=== PATIENT | female | born 1955 | race Caucasian/White ===

== ENCOUNTER → 2017-04-04 | Outpatient (CLI) | payer BC ==
[2017-04-04 09:37] LABS: ALT 35 U/L (9-52); AST 32 U/L (14-36); Cholesterol 157 mg/dL (<200); Creatine Kinase 100 U/L (30-135); HDL Cholesterol 85 mg/dL (40-60)
== END | disposition home or self-care (01) ==
LOC: LABWHC1 07:55
PROVIDERS: ATTEND Internal Medicine Interventional Cardiology
DX: E78.2 Mixed hyperlipidemia (principal)
CPT/HCPCS: 36415; 80061; 82550; 84450; 84460

== ENCOUNTER → 2020-03-24 | Outpatient (CLI) | payer MEDICARE ==
[2020-03-24 16:28] LABS: Albumin 4.3 g/dL (3.80-4.90); Albumin/Globulin Ratio 2.26 (1.60-3.17); Anion Gap 7.2 mmol/L (4.00-12.00); BUN/Creat Ratio 23.75 Ratio (12.00-20.00); Calcium 9.4 mg/dL (8.7-10.3); Carbon Dioxide 27.8 mmol/L (21.6-31.8); Chol/HDL Ratio 2.4; Globulin 1.9 g/dL (1.6-3.3); LDL Cholesterol,Calculated 78.4 mg/dL (0.0-131.0); Non-African American GFR(CKD) 76.8 (60.0-200.0); Potassium 4.3 mmol/L (3.5-5.5); Total Bilirubin 0.6 mg/dL (0.2-1.2); Total Protein 6.2 g/dL (6.2-8.2); VLDL Calculation 19.6 mg/dL (5.00-40.00)
== END | disposition home or self-care (01) ==
LOC: LABWHC1 08:42
PROVIDERS: ATTEND Internal Medicine Interventional Cardiology
DX: E78.2 Mixed hyperlipidemia (principal)
CPT/HCPCS: 36415; 80053; 80061

== ENCOUNTER → 2021-08-11 | Outpatient (CLI) | payer MEDICARE ==
--- NOTE | 2021-08-11 11:30 | MR ---
EXAMINATION TYPE: MR shoulder RT wo con DATE OF EXAM: 08/11/2021 COMPARISON: Plain film 07/26/2021 HISTORY: Rt shoulder pain and tingling increasing over past years TECHNIQUE: Multiplanar, multisequence imaging of the right shoulder is performed without contrast. FINDINGS: Rotator Cuff: Partial full-thickness rotator cuff tear is present, supraspinatus tendon is detached a t its insertion, there is some retraction to the level of the acromioclavicular joint on the portion of the tendon, infraspinatus tendon is attenuated. Subscapularis tendon also shows some increased sig nal within the substance., supraspinatus tendon is markedly attenuated. Fluid signal is present along the subscapularis tendon, musculotendinous junction, there may be a ganglion, there is a septation p resent, overall the signal of fluid measures approximately 5.8 cm in cephalad to caudal dimension by 5.6 cm in AP dimension by 15 mm. Acromioclavicular Joint: There is a distal acromial spur. Acromioclavicular joint arthropathy causes some mass effect on the musculotendinous junction of supraspinatus. Fluid signal is present in the metz bacromial subdeltoid bursa. Glenohumeral Joint: There is some remodeling present, the joint is intact. There is some mild spurrin g present. Labrum: Superior labrum shows abnormal increased intrinsic signal, findings may be due to degenerativ e, difficult to exclude an intrasubstance tear, some local fraying, coronal image 15 although this co uld represent volume averaging. Biceps Tendon: The long head of biceps is in normal location within bicipital groove, some fluid sign al is present along the tendon. Bone marrow signal: Some pseudocysts are present within the humeral head Other: No additional significant abnormality is appreciated. IMPRESSION: There is a partial full-thickness rotator cuff tear. Possible labral tear as described. Osteoarthriti s. Correlate for impingement.
== END | disposition home or self-care (01) ==
LOC: RADMRIMAIN 08:52
PROVIDERS: ATTEND Orthopaedic Surgery
DX: M75.111 Incomplete rotator cuff tear or rupture of right shoulder, not specified as traumatic (principal); M19.011 Primary osteoarthritis, right shoulder

== ENCOUNTER 2022-01-02 08:02 | Day surgery (SDC) | payer MEDICARE ==
[2021-12-28 13:42] VITALS: BMI 26.4
[~2022-01-02 08:02] MED LIST: LIDOCAINE 1% (10MG/ML) FOR IV START INTRADERMA PRN
[2022-01-02] MEDS: LACTATED RINGERS 1,000 ML IV SCH ×2 (08:13→10:06)
[2022-01-02 08:33] VITALS: RESP 16; TEMP 97.2
[2022-01-02] MEDS ORDERED: PROPOFOL 10 MG/ML 20 ML VIAL IV ONE (10:07)
[2022-01-02] MEDS ORDERED: LIDOCAINE 2% INJ 20 MG/ML (2 ML VIAL) ONE (10:07)
--- NOTE | 2022-01-02 10:22 | P.PCN ---
Date of Procedure: 01/02/22 Procedure(s) Performed: BRIEF HISTORY: Patient is a 66-year-old pleasant white female scheduled for an elective colonoscopy as a part of screening for colorectal neoplasia PROCEDURE PERFORMED: Colonoscopy with biopsy PREOPERATIVE DIAGNOSIS: Screening for colon cancer. IV sedation per Anesthesia. PROCEDURE: After informed consent was obtained, the patient, was brought into the endoscopy unit. IV sedation was administered by Anesthesia under continuous monitoring. Digital rectal examination was normal. Initially the Olympus CF-160 flexible video colonoscope was then inserted in the rectum, gradually advanced into the cecum without any difficulty. Careful examination was performed as the scope was gradually being withdrawn. Ileocecal valve and the appendiceal orifice were visualized and appeared normal. Prep was excellent. Mucosa of the cecum, ascending colon, appeared normal. In the proximal transverse colon there was a 5 mm sessile polyp that was removed by cold biopsy. Rest of the transverse colon, descending colon, sigmoid colon, and rectum appeared normal. Scattered sigmoid diverticulosis seen. Retroflexion was performed in the rectum and no lesions were seen. The patient tolerated the procedure well. IMPRESSION: 5 mm polyp in the proximal transverse colon status post cold biopsy Scattered left sided diverticulosis RECOMMENDATIONS: Findings of this examination were discussed with the patient the less her family. She was advised to follow with the biopsy results. If the biopsy reveals an adenoma she can have a repeat colonoscopy in 5 years..
[2022-01-02 10:56] VITALS: BP 137/52; PULSE 49
== END 2022-01-02 11:11 | disposition home or self-care (01) ==
LOC: ORWHC2ENDO 08:02
PROVIDERS: ATTEND Internal Medicine Gastroenterology
DX: Z12.11 Encounter for screening for malignant neoplasm of colon (principal); D12.3 Benign neoplasm of transverse colon; K57.30 Diverticulosis of large intestine without perforation or abscess without bleeding; E78.5 Hyperlipidemia, unspecified; F32.A Depression, unspecified; I34.1 Nonrheumatic mitral (valve) prolapse; Z88.0 Allergy status to penicillin; Z88.5 Allergy status to narcotic agent; Z88.2 Allergy status to sulfonamides; Z88.3 Allergy status to other anti-infective agents; Z79.899 Other long term (current) drug therapy; Z91.038 Other insect allergy status; Z80.41 Family history of malignant neoplasm of ovary; Z80.8 Family history of malignant neoplasm of other organs or systems
CPT/HCPCS: 88305; 45380; J2704; J2001

== ENCOUNTER → 2023-04-25 | Outpatient (CLI) | payer MEDICARE ==
[2023-04-25 18:33] LABS: ALT 13 U/L (8-44); AST 23 U/L (13-35); Albumin 4.1 d/dL (3.8-4.9); Albumin/Globulin Ratio 1.71 Ratio (1.60-3.17); Alkaline Phosphatase 102 U/L (41-126); BUN/Creat Ratio 26.25 Ratio (12.00-20.00); Calcium 9.4 mg/dL (8.7-10.3); Chloride 108 mmol/L (96-109); Chol/HDL Ratio 2.25 Ratio; Globulin 2.4 d/dL (1.6-3.3); Glucose 94 mg/dL (70-110); LDL Cholesterol,Calculated 67.9 mg/dL (0.0-131.0); Potassium 4.6 mmol/L (3.5-5.5); Sodium 144 mmol/L (135-145); Total Bilirubin 0.4 mg/dL (0.3-1.2); Total Protein 6.5 d/dL (6.2-8.2); VLDL Calculation 11.96 mg/dL (5.00-40.00)
== END | disposition home or self-care (01) ==
LOC: LABWHC1 08:43
PROVIDERS: ATTEND Internal Medicine Interventional Cardiology
DX: E78.2 Mixed hyperlipidemia (principal)
CPT/HCPCS: 36415; 80053; 80061

== ENCOUNTER → 2024-11-14 | Outpatient (CLI) | payer MEDICARE ==
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
== END | disposition home or self-care (01) ==
LOC: RADMRIMAIN 13:35
PROVIDERS: ATTEND Orthopaedic Surgery
DX: S43.432A Superior glenoid labrum lesion of left shoulder, initial encounter (principal); M47.816 Spondylosis without myelopathy or radiculopathy, lumbar region; M42.06 Juvenile osteochondrosis of spine, lumbar region; K44.9 Diaphragmatic hernia without obstruction or gangrene; N83.292 Other ovarian cyst, left side; M19.012 Primary osteoarthritis, left shoulder; X58.XXXA Exposure to other specified factors, initial encounter
CPT/HCPCS: 72146; 72148

== ENCOUNTER 2025-02-02 07:30 | Day surgery (SDC) | payer MEDICARE ==
[2025-02-02 07:53] VITALS: TEMP 98.4
[2025-02-02] MEDS: LACTATED RINGERS 1,000 ML IV SCH (08:05)
[2025-02-02] MEDS: IV FLUID CONTINUATION 1,000 ML IV ONE ×2 (08:06→08:56)
[2025-02-02] MEDS ORDERED: PROPOFOL 10 MG/ML 20 ML VIAL IV ONE (08:38)
[2025-02-02] MEDS ORDERED: LIDOCAINE 1% INJ 10MG/ML (20 ML MDV) ONE (08:38)
--- NOTE | 2025-02-02 08:50 | P.PCN ---
Date of Procedure: 02/02/25 Procedure(s) Performed: BRIEF HISTORY: Patient is a 69-year-old, pleasant, white female scheduled up anoscopy as above evaluation of GERD and abnormal MRI that showed a large hiatal hernia.. PROCEDURE PERFORMED: Esophagogastroduodenoscopy. PREOPERATIVE DIAGNOSIS: GERD/abnormal MRI. IV sedation per anesthesia. PROCEDURE: After informed consent was obtained, the patient was brought into the endoscopy unit. IV conscious sedation was administered by Anesthesia under continuous monitoring. Initially the Olympus GIF-140 video endoscope was inserted into the mouth. Esophagus intubated without any difficulty. It was gradually advanced into the stomach and duodenum and carefully examined. The bulb and the second part of the duodenum appeared normal. The scope at this time was withdrawn to the stomach, adequately insufflated with air, and upon careful examination, mucosa of the antrum had linear areas of erythema and scattered erosions consistent with gastritis and biopsies were done from this area. Mucosa of the, body, cardia and the fundus appeared normal. The scope was then withdrawn into the esophagus. Moderate to large size hiatal hernia noted. The diaphragmatic compression was located 40 cm from the incisors. The GE junction was located at 30 cm from the incisors. The esophagus appeared normal. There were no erosions or ulcerations seen and the patient tolerated the procedure well. IMPRESSION: 1.Large hiatal hernia. 2.Antral erosive gastritis. RECOMMENDATIONS: The findings of this examination were discussed with the patient as well as her family. She was advised to follow with the biopsy results. Continue with diet modification and antireflux measures..
[2025-02-02 09:12] VITALS: RESP 16
[2025-02-02 09:32] VITALS: BP 126/60; PULSE 56
== END 2025-02-02 09:32 | disposition home or self-care (01) ==
LOC: ORWHC2ENDO 07:30
PROVIDERS: ATTEND Internal Medicine Gastroenterology
DX: K29.50 Unspecified chronic gastritis without bleeding (principal); K21.9 Gastro-esophageal reflux disease without esophagitis; K44.9 Diaphragmatic hernia without obstruction or gangrene; I34.1 Nonrheumatic mitral (valve) prolapse; E78.5 Hyperlipidemia, unspecified; F41.9 Anxiety disorder, unspecified; Z90.01 Acquired absence of eye; Z88.0 Allergy status to penicillin; Z88.1 Allergy status to other antibiotic agents; Z88.5 Allergy status to narcotic agent; Z79.899 Other long term (current) drug therapy
CPT/HCPCS: 43239; J2003; J2704; 88305